=== PATIENT | female | born 1925 | race Caucasian/White ===

== ENCOUNTER 2017-06-09 13:39 | Emergency (ER) | payer MEDICARE ==
[2017-06-09 14:05] VITALS: BP 158/55
--- NOTE | 2017-06-09 14:40 | UC ---
Ear Complaint HPI - HPI Summary HPI Summary: patient is under the care of Dr Redd for her ears, He had prescribed Ciprodex for her ear infection, she has not been taking it becasue she thought it is makeing her ears ring. She was given valium to sleep due to the ringing, but she does not see him till tomorrow. - History of Current Complaint Chief Complaint: UCGeneralIllness Stated Complaint: BILATERAL EAR RINGING/MED REFILL Time Seen by Provider: 06/09/17 14:21 - Allergies/Home Medications Allergies/Adverse Reactions: Allergies Allergy/AdvReac Type Severity Reaction Status Date / Time Erythromycin Allergy Unknown Verified 06/09/17 14:06 Reaction Details Sulfa Antibiotics Allergy Agitation Verified 06/09/17 14:06 Home Medications: Home Medications Aspirin EC Low Dose* [Ecotrin EC Low Dose 81 MG*] 81 mg PO DAILY 06/09/17 [ History Confirmed 06/09/17] Atorvastatin* [Lipitor*] 10 mg PO DAILY 06/09/17 [History Confirmed 06/09/17] Brimonid/Timolol 0.2/0.5%(NF) [Combigan 0.2/0.5% (NF)] 1 drop RIGHT EYE BID [History Confirmed 06/09/17] Cholecalciferol TAB* [Vitamin D TAB*] 1,000 unit PO DAILY 06/09/17 [History Confirmed 06/09/17] Clopidogrel TAB* [Plavix TAB*] 75 mg PO DAILY 06/09/17 [History Confirmed ] Docusate CAP* [Colace Cap*] 100 mg PO DAILY 06/09/17 [History Confirmed 06/09/17 ] Latanoprost 0.005%* [Xalatan 0.005%*] 1 drop RIGHT EYE QPM 06/09/17 [History Confirmed 06/09/17] Lisinopril TAB* [Prinivil TAB*] 20 mg PO BID 06/09/17 [History Confirmed ] LoraTADine TAB(NF) [Claritin 10 MG TAB(NF)] 10 mg PO DAILY 06/09/17 [History Confirmed 06/09/17] Multivitamins/Minerals TAB* [Theragran/minerals TAB*] 1 tab PO DAILY 06/09/17 [ History Confirmed 06/09/17] Torsemide TAB* [Demadex*] 10 mg PO DAILY 06/09/17 [History Confirmed 06/09/17] amLODIPine TAB* [Norvasc 5 mg TAB*] 2.5 mg PO TID 06/09/17 [History Confirmed ] cloNIDine TAB* [Catapres 0.1 MG TAB*] 0.1 mg PO DAILY 06/09/17 [History Confirmed 06/09/17] PMH/Surg Hx/FS Hx/Imm Hx Previously Healthy: Yes - Surgical History Surgical History: Yes Surgery Procedure, Year, and Place: pacemaker. right ear implant - Social History Alcohol Use: None Substance Use Type: None Smoking Status (MU): Never Smoked Tobacco Review of Systems Skin: Negative Eyes: Negative ENT: Ear Ache Respiratory: Negative Cardiovascular: Negative Gastrointestinal: Negative Genitourinary: Negative Motor: Negative Neurovascular: Negative Musculoskeletal: Negative Neurological: Negative Psychological: Negative All Other Systems Reviewed And Are Negative: Yes Physical Exam Triage Information Reviewed: Yes Appearance: Well-Nourished, Ill-Appearing, Pain Distress Vital Signs: Initial Vital Signs Temp 98.8 F 06/09/17 13:56 Pulse 63 06/09/17 13:56 Resp 18 06/09/17 13:56 BP 158/55 06/09/17 13:56 Pulse Ox 99 06/09/17 13:56 Vital Signs Reviewed: Yes Eye Exam: Normal Eyes: Positive: Conjunctiva Clear ENT: Positive: Pharynx normal, TM red, Other: - left ear, large amount of exudate in the ear canal, smoe blodd tinged Dental Exam: Normal Neck exam: Normal Respiratory Exam: Normal Respiratory: Positive: Chest non-tender, Lungs clear, Normal breath sounds Cardiovascular Exam: Normal Cardiovascular: Positive: RRR, No Murmur, Pulses Normal Abdominal Exam: Normal Abdomen Description: Positive: Nontender, No Organomegaly, Soft Bowel Sounds: Positive: Present Musculoskeletal Exam: Normal Musculoskeletal: Positive: Strength Intact, ROM Intact, No Edema Neurological Exam: Normal Psychological Exam: Normal Skin: Positive: rashes Ear Complaint Course/Dx - Course Course Of Treatment: hx obtained, exam performed ,meds reviewed, treated for tinnitus and recommend restarting the ABX prescribed by ivania - Differential Dx/Diagnosis Differential Diagnosis/HQI/PQRI: Otitis Externa, Otitis Media, Perforated TM Provider Diagnoses: otitis externa left ear, tinnitus Discharge - Discharge Plan Condition: Stable Disposition: HOME Prescriptions: Diazepam TAB(*) [Valium TAB(*)] 2 mg PO BEDTIME PRN #1 tab MDD 1 tab PRN Reason: Sleep Patient Education Materials: Tinnitus (ED) Referrals: Kya Myers MD [Primary Care Provider] - Additional Instructions: 1. YOu have an infection in your left ear, I would restart the antibiotics that Dr Redd started, 2. I have prescribed another valium for you until you see Dr redd tomorrow.
== END 2017-06-09 14:37 | disposition home or self-care (01) ==
LOC: UCCORT 13:39
DX: H60.93 Unspecified otitis externa, bilateral (principal); H93.13 Tinnitus, bilateral; Z88.1 Allergy status to other antibiotic agents; Z88.2 Allergy status to sulfonamides
CPT/HCPCS: 99202; G0463